=== PATIENT | female | born 2000 | race Caucasian/White ===

== ENCOUNTER 2021-09-28 12:54 | Emergency (ER) | payer OTHER, SELFPAY ==
[2021-09-28 12:55] VITALS: BP 116/73; PULSE 73; RESP 12; TEMP 36.6; O2SAT 97; BMI 29.7
--- NOTE | 2021-09-28 13:09 | EX.ED.DYSGE1 ---
HPI History of Present Illness Chief Complaint: Lower Extremity Injury Detail of Chief Complaint: Sciatica\left leg swelling Informant: patient Onset/Context/Timing Onset: Days Context: Gradual Onset Current Severity: Mild Maximum Severity: Moderate Narrative Narrative: Patient presents secondary to sciatica as well as left leg swelling. Patient delivered a stillborn baby on the of this month. She has very minimal if any vaginal bleeding at this time. She states she has had problems with her left sciatic nerve flaring up over the past several days. She was seen by her chiropractor who did an adjustment and told her left leg swelling should be improved within 24 hours. She feels that the swelling today is worse if anything. She has noted left leg swelling for the past 3 days. She is concerned for possible DVT. She presents on Thursday afternoon when I do not have venous ultrasound available. [facility] Medical History (Updated 09/28/21 @ 13:[address] Breanna Rubio MD) Sciatica Home Medications cyclobenzaprine 10 mg PO BID PRN #10 tab 09/28/21 [Rx Last Taken Unknown] hydrocodone-acetaminophen 1 tab PO Q6H PRN 3 Days #10 tab 09/28/21 [Rx Last Taken Unknown] Allergy/AdvReac Type Severity Reaction Status Date / Time No Known Allergies Allergy Verified 09/28/21 12:55 [facility] ED Constitutional Constitutional ED: Denies chills or fever(s) Eyes Eyes: Denies change in vision Cardiovascular Cardiovascular: Denies chest pain Respiratory/Chest Respiratory/Chest: Denies cough or dyspnea Gastrointestinal Gastrointestinal: Denies abdominal pain, diarrhea, nausea or vomiting Genitourinary Genitourinary ED: Denies dysuria Musculoskeletal Musculoskeletal: Reports arthralgias and back pain Integumentary Denies rash Neurologic Neurologic: Denies headache(s) or weakness Allergic/Immunologic Allergic/Immunologic ED: Denies urticaria EXAM Physical Exam Const Vital Signs: 09/28/21 12:55 Temperature 97.9 F Temperature Source Temporal Pulse Rate 73 Respiratory Rate 12 Blood Pressure 116/73 Blood Pressure Mean 87 Pulse Ox 97 Oxygen Delivery Method Room Air Positive well nourished and well developed General Appearance ED: well developed HEENT Reports moist mucous membranes Eyes PERRL and EOMs intact bilaterally Neck no lymphadenopathy and supple Chest Wall inspection of chest normal and palpation of chest normal Resp normal respiratory effort and clear to auscultation bilaterally Cardio regular rate and regular rhythm GI normal to inspection, nondistended, normoactive bowel sounds and non-tender Palpation: soft Back/Spine Back/Spine Narrative: No midline thoracic or lumbar tenderness. Tenderness in the left lower lumbar paraspinal muscles and over the left sciatic notch. Extremity Extremity Narrative: 2-3+ edema noted to the left lower extremity. Strong distal pulses. Full range of motion at all joints with no difficulty. Neuro oriented x3 Sensorium / Orientation: alert Psych mental status grossly normal Skin no rashes or lesions noted MDM MDM MDM Narrative Medical decision making narrative: Patient is currently on ibuprofen for her back pain. She will be given a prescription for Flexeril and [place] as well. I am unable to get an ultrasound of her leg at this time. She will be given a single dose of Lovenox and will return tomorrow for venous ultrasound of the leg. Patient voices understanding and agreement with the plan. Discharge Plan Triage Chief Complaint: Lower Extremity Injury ED Provider: Breanna Rubio Dx/Rx/DC Orders Clinical Impression: Sciatica, Edema, lower extremity Instructions: ED Peripheral Edema, Unilateral, ED Sciatica Prescriptions: New cyclobenzaprine 10 mg tablet 10 mg PO BID PRN (Reason: muscle spasm) Qty: 10 RF: 0 hydrocodone-acetaminophen 5-325 mg tablet 1 tab PO Q6H PRN (Reason: pain) 3 Days Qty: 10 RF: 0 Other Ambulatory Orders: Venous Duplex US, Unilateral (Routine) Facility: [facility] - Location: [facility] Ordered By: Dr. Breanna Rubio ON-CALL NEEDED: Notify [facility] - Doppler Study Ordered (Stat) Location: None Selected Ordered By: Dr. Breanna Rubio Primary Care Provider: [facility] ,Out of Referrals: Sil Morales,Out of [Primary Care Provider] - Disposition Disposition: Home, Self Care
[2021-09-28] MEDS: Enoxaparin 80 MG/0.8 ML Syringe 70 MG SC (13:24)
== END 2021-09-28 14:01 | disposition home or self-care (01) ==
LOC: ED 13:41
PROVIDERS: Emergency Provider Emergency Medicine; Visit Provider Emergency Medicine
DX: M54.42 Lumbago with sciatica, left side (principal); R60.0 Localized edema
CPT/HCPCS: 96372; 99282

== ENCOUNTER 2021-09-29 12:47 | Emergency (ER) | payer OTHER, SELFPAY ==
[2021-09-29 12:49] VITALS: BP 110/67; PULSE 83; RESP 17; TEMP 36.8; O2SAT 98; BMI 29.7
--- NOTE | 2021-09-29 13:07 | EX.ED.DYSGE1 ---
HPI History of Present Illness Chief Complaint: Lower Extremity Injury Detail of Chief Complaint: DVT Informant: patient Narrative Narrative: Patient seen in the emergency room yesterday secondary to left leg pain with sciatica but also had edema. She delivered a stillborn baby approximately 10 days prior. Patient presented after hours for ultrasound and had outpatient ultrasound today. This does reveal evidence of DVT with involvement of the external iliac vein, common femoral vein, profunda vein, femoral vein, left popliteal vein, left TP trunk, left peroneal vein. Patient states she did well after receiving the Lovenox injection yesterday. She denies chest pain or shortness of breath. [facility] Medical History Sciatica Home Medications cyclobenzaprine 10 mg PO BID PRN #10 tab 09/28/21 [Rx Last Taken Unknown] hydrocodone-acetaminophen 1 tab PO Q6H PRN 3 Days #10 tab 09/28/21 [Rx Last Taken Unknown] apixaban [Eliquis DVT-PE Treat 30D Start] 5 mg PO BID #74 tab 09/29/21 [Rx Last Taken Unknown] Allergy/AdvReac Type Severity Reaction Status Date / Time No Known Allergies Allergy Verified 09/29/21 12:49 Social History Smoking Status: Former smoker ROS ROS ED Constitutional Constitutional ED: Denies chills or fever(s) Eyes Eyes: Denies change in vision ENT ENT ED: Denies sore throat Cardiovascular Cardiovascular: Denies chest pain Respiratory/Chest Respiratory/Chest: Denies cough or dyspnea Gastrointestinal Gastrointestinal: Denies abdominal pain, nausea or vomiting Genitourinary Genitourinary ED: Denies dysuria Musculoskeletal Musculoskeletal: Reports arthralgias and back pain Integumentary Denies rash Neurologic Neurologic: Denies headache(s), paresthesias or weakness Allergic/Immunologic Allergic/Immunologic ED: Denies urticaria EXAM Physical Exam Const Vital Signs: 09/29/21 12:49 Temperature 98.3 F Temperature Source Temporal Pulse Rate 83 Respiratory Rate 17 Blood Pressure 110/67 Blood Pressure Mean 81 Pulse Ox 98 Oxygen Delivery Method Room Air Positive well nourished and well developed General Appearance ED: well developed HEENT Reports moist mucous membranes Eyes PERRL and EOMs intact bilaterally Neck supple Chest Wall inspection of chest normal and palpation of chest normal Resp normal respiratory effort and clear to auscultation bilaterally Cardio regular rate and regular rhythm GI normal to inspection, nondistended, normoactive bowel sounds and non-tender Palpation: soft Extremity Extremity Narrative: 2+ edema noted to the left lower extremity. Strong distal pulses. Neuro oriented x3 Sensorium / Orientation: alert Motor Exam: strength 5/5 throughout Psych mental status grossly normal Skin no rashes or lesions noted [facility] Treatment and Re-Evaluation Narrative: I do have a coupon for Eliquis 30-day starter pack. She will be given this and first dose of Eliquis will be provided in the emergency room. She does not have a primary care physician. I will speak with Dr. Andersen, on-call for [facility] no doc. Patient will follow-up in her office. Discharge Plan Triage Chief Complaint: Lower Extremity Injury ED Provider: Breanna Rubio Dx/Rx/DC Orders Clinical Impression: DVT (deep venous thrombosis) Instructions: ED Deep Vein Thrombosis (DVT) Prescriptions: New Eliquis DVT-PE Treat 30D Start 5 mg (74 tabs) tablets,dose pack 5 mg PO BID Qty: 74 RF: 0 No Action cyclobenzaprine 10 mg tablet 10 mg PO BID PRN (Reason: muscle spasm) Qty: 10 RF: 0 hydrocodone-acetaminophen 5-325 mg tablet 1 tab PO Q6H PRN (Reason: pain) 3 Days Qty: 10 RF: 0 Primary Care Provider: Care Physician,No Primary Referrals: Jose Antonio Andersen DO [NON-STAFF] - 1-2 Weeks Care Physician,No Primary [Primary Care Provider] - Disposition Disposition: Home, Self Care
[2021-09-29] MEDS: APIXABAN 5 MG TABLET 10 MG PO (13:17)
== END 2021-09-29 13:44 | disposition home or self-care (01) ==
LOC: ED 13:12
PROVIDERS: Emergency Provider Emergency Medicine; Visit Provider Emergency Medicine
DX: I82.422 Acute embolism and thrombosis of left iliac vein (principal); I82.412 Acute embolism and thrombosis of left femoral vein; I82.432 Acute embolism and thrombosis of left popliteal vein; I82.452 Acute embolism and thrombosis of left peroneal vein; Z87.891 Personal history of nicotine dependence
CPT/HCPCS: 99283

== ENCOUNTER → 2021-09-29 | Outpatient (CLI) | payer OTHER, SELFPAY ==
--- NOTE | 2021-09-29 12:20 | VDLE_ITS ---
Reason For Study: Swelling RIGHT LEFT CFV is compressible, spontaneous, phasic, Lt EIV, Lt CFV, Lt ProfudaV, Lt FV, Lt PopV, competent and demonstrates normal Lt T/P Trunk, Lt PTV, Lt PeroV are dilated augmentation. and non compresible consistent with acute Procedure DVT This is a venous duplex using B-mode, color flow and spectral Doppler. DVT is seen in Lt EIV. Exam performed in department. GSV is normal. Patient taken to ED. A preliminary report was called and/or faxed to ED. VL/Venous Duplex US, Unilateral Interpretation Summary Acute deep vein thrombosis is noted in the left external iliac vein. Acute deep vein thrombosis is noted in the left profunda femoris vein. Acute deep vein thrombosis is noted in the left common femoral vein. Acute deep vein thrombosis is noted in the left femoral vein. Acu te deep vein thrombosis is noted in the left popliteal vein. Acute deep vein thrombosis is n oted in the left tibio-peroneal trunk. Acute deep vein thrombosis is noted in the left posterior tibial vein. Acute deep vein thrombosis is noted in the left peroneal vein. The left great [place] us vein appears patent and compressible segmentally. Ordering Physician: Breanna Rubio Referring Physician: Breanna Rubio Performed By: Marisela Felix, ZOË, RVT
== END | disposition home or self-care (01) ==
PROVIDERS: Referring Provider Emergency Medicine; Visit Provider Emergency Medicine
DX: M79.89 Other specified soft tissue disorders (principal)
CPT/HCPCS: 93971

== ENCOUNTER 2023-10-30 18:45 | Emergency (ER) | payer OTHER, SELFPAY ==
[2023-10-30 18:45] VITALS: BP 113/73; PULSE 68; RESP 16; TEMP 36.6; O2SAT 99; BMI 30.4
--- NOTE | 2023-10-30 18:59 | CT_ITS ---
INDICATION: RIght sided headache EXAMINATION: CT BRAIN - CT Head or Brain W/O Contrast Injection TECHNIQUE: Multiple axial images were obtained of the head without intravenous contrast. A radiation dose optimization technique was used for this scan. IV Contrast dosage and agent: None. COMPARISON: None FINDINGS: BRAIN PARENCHYMA: No intra- or extra-axial hemorrhage. No evidence of acute infarct. No intracranial mass or mass effect. Unremarkable white matter for age. There is preservation of the courtney/white matter interface. Posterior fossa structures are unremarkable. CSF SPACES: Cerebral volume appropriate for age. No hydrocephalus. Basal cisterns are patent. CALVARIUM, SKULL BASE, PARANASAL SINUSES AND MASTOID AIR CELLS: No acute osseous finding. Paransasal sinuses are clear. Mastoid air cells are clear. ORBITS: Both globes, extraocular muscles, optic nerves and retrobulbar fat appear unremarkable. ASPECTS Score for Acute Strokes: 10 CT/Brain/Head without Contrast IMPRESSION: Negative Brain CT without contrast. Electronically Signed: Paulo Lambert MD at 19:50 EDT ,
--- NOTE | 2023-10-30 19:01 | EDS_ITS ---
HPI History of Present Illness Chief Complaint: Headache Narrative Narrative: 23-year-old female who denies significant past medical history presents with her boyfriend because of a right-sided headache and nausea that she has had since 4 PM today. 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 She states that she is nauseated, and when she tries to vomit or dry heave, her head will hurt even more. She describes almost near syncope as well. She is describing somewhat of an aura where she is seeing blotches. Additionally, she states she has had headaches almost every day for the last 3 months. Usually they will go away with Tylenol or ibuprofen. Last menstrual period was approximately 1 month ago. She denies any numbness or tingling of her arms or legs but has phonophobia but no photophobia. She also states that without her glasses, she gets occasional double vision. [facility] Medical History Sciatica Home Medications ?Medication ?Instructions ?Recorded ?Last Taken ?Type cyclobenzaprine 10 mg tablet 10 mg PO BID PRN muscle spasm #10 09/28/21 Unknown Rx tabs hydrocodone-acetaminophen 5-325mg 1 tab PO Q6H PRN pain 3 days #10 09/28/21 Unknown Rx 5mg-325mg tabs apixaban 5 mg (74 tabs) tablets in 5 mg PO BID #74 tabs 09/29/21 Unknown Rx a dose pack (Eliquis DVT-PE Treat 30D Start) Allergy/AdvReac Type Severity Reaction Status Date / Time No Known Allergies Allergy Verified 10/30/23 18:46 Social History Smoking Status: Former smoker ROS ROS ED ROS Narrative Constitutional: No fever, no chills. HEENT: No sore throat. No neck pain. No loss of vision. Intermittent double vision, and seeing blotches. No rhinorrhea. Cardiovascular: No chest pain. No palpitations. No pedal edema. Respiratory: No cough, no shortness of breath. Abdominal: No abdominal pain. Positive nausea. No vomiting. Occasional dry heaving. Genitourinary: No dysuria. No hematuria. Musculoskeletal: No myalgias. No arthralgias. Neurologic: Positive daily headaches. No dizziness. Positive lightheadedness. Skin: No rash. No change in color. Psychiatric: No depression. No anxiety. EXAM Physical Exam Narrative Exam Narrative: Afebrile. Vital signs noted. HEENT: Normocephalic. Atraumatic. PERRL, EOMI. Neck soft and supple. No point tenderness or step off. Cardiovascular: Regular rate and rhythm. No murmurs, rubs, or gallops appreciated. Respiratory: No tachypnea. Lungs clear to auscultation bilaterally. Gastrointestinal: Abdomen soft, nontender, with normoactive bowel sounds. No rebound or guarding. Neurological: Awake. Alert. Nonfocal, nonlateralizing. NIH stroke scale is 0. DTRs equal and symmetric, patellar Skin: No rash. Normal color. No pallor. Musculoskeletal: No pedal edema. Full range of motion extremities. Const Vital Signs: 10/30/23 18:45 Temperature 97.8 F Temperature Source Temporal Pulse Rate 68 Respiratory Rate 16 Blood Pressure 113/73 Blood Pressure Mean 86 Pulse Ox 99 MDM MDM MDM Narrative Medical decision making narrative: Concern is for migrainous type headache. I reviewed her prior records and she has not had a workup for this, however. She has almost daily headaches. I do feel that she would require baseline laboratory work, and CT imaging of the brain. She will be given a migraine cocktail/medications including Compazine and Benadryl along with IV fluids for her near syncope. I think she may be having more of an atypical migraine today. I reviewed the CT report of the CT of the brain which shows no evidence of acute process, no hemorrhage or mass. I reviewed her laboratory work and she has normal white count of 9.9, hemoglobin normal at 12.1, platelet count normal at 263. Electrolyte panel is significant for chloride of 111 which I think is nonspecific, no dehydration. Serum is negative. After Compazine and Benadryl, repeat examination at approximately 2014 shows her to be resting comfortably and her headache is mildly improved. At this point in time, I feel she can be discharged to follow-up with her primary care provider and/or neurology. She was referred to both. Return instructions to the emergency department were reviewed. Disposition is discharged home in stable condition. History & Record Review Discussion w/independent historian: Patient Lab Data Attestation: I reviewed the patient's lab results. Labs: Laboratory Results - last 24 hr 10/30/23 10/30/23 19:10 19:53 WBC 9.9 RBC 4.47 Hgb 12.1 Hct 37.4 MCV 83.7 MCH 27.1 MCHC 32.4 RDW Std Deviation 38.8 RDW Coeff of Nicholas 13.0 Plt Count 263 MPV 10.9 Immature Gran % (Auto) 0.200 Neut % (Auto) 53.1 Lymph % (Auto) 37.0 [place] % (Auto) 7.7 Eos % (Auto) 1.5 Baso % (Auto) 0.5 Absolute Neuts (auto) 5.2 Absolute Lymphs (auto) 3.64 Nucleated RBC % 0 Sodium 140 Potassium 3.5 Chloride 111 H Carbon Dioxide 25.0 Anion Gap 4 L BUN 13 Creatinine 0.76 Estim Creat Clear Calc 99.20 Est GFR (MDRD) Af Amer 119 Est GFR (MDRD) Non-Af 98 BUN/Creatinine Ratio 17.1 Glucose 89 Calcium 9.3 Serum , Qual NEGATIVE Radiography Diagnostic Testing: Clinical Impression(s) from Imaging Studies Brain CT 10/30/23 18:59 IMPRESSION: Negative Brain CT without contrast. Electronically Signed: Paulo Lambert MD at 19:50 EDT Reading Location ID and State: [facility] / [place] Tel , Service support , Discharge Plan Triage Chief Complaint: Headache ED Provider: Aston Chávez Dx/Rx/DC Orders Clinical Impression: Migraine headache, Lightheadedness Instructions: ED Headache Unspecified, ED, Migraine (Classical), ED Near- Fainting, Uncertain Cause Prescriptions: No Action cyclobenzaprine 10 mg tablet 10 mg PO BID PRN (Reason: muscle spasm) Qty: 10 0RF hydrocodone-acetaminophen 5-325 mg tablet 1 tab PO Q6H PRN (Reason: pain) 3 Days Qty: 10 0RF Eliquis DVT-PE Treat 30D Start 5 mg (74 tabs) tablets,dose pack 5 mg PO BID Qty: 74 0RF Primary Care Provider: Care Physician,No Primary Referrals: Jose Miguel Gallardo MD [Non-Staff] - Edson Niño MD [Med Staff - Active Staff] - As soon as possible Billy Nicholas MD [Non-Staff -Ordering Privileges] - As Needed Care Physician,No Primary [Primary Care Provider] - Print Language: Mexican Disposition Disposition: Home, Self Care
[2023-10-30] MEDS: 0.9% Normal Saline (1000mL) 1,000 ML 1000 ML IV (19:13)
[2023-10-30] MEDS: DiphenhydrAMINE 50 MG/ML Syringe 25 MG IV (19:13)
[2023-10-30] MEDS: proCHLORPERazine 10 MG/2 ML Vial IV (19:14)
[2023-10-30 19:18] LABS: Absolute Lymphocyte Count 3.64 X10^3/uL (0.83-4.51); Absolute Neutrophil Count 5.2 X10^3/uL (2.0-7.7); Basophil# 0.05 X10^3/uL; Basophil% 0.5 % (0-1); Eosinophil# 0.15 X10^3/uL; Eosinophils% 1.5 % (0-5); Hematocrit 37.4 % (37-47); Hemoglobin 12.1 g/dL (12.0-15.0); Lymphocyte # 3.64 X10^3/ul (0.83-4.51); Mean Corp Hgb Conc 32.4 g/dL (32-36); Mean Corpuscular Hgb 27.1 pg (27.0-32.0); Mean Corpuscular Volume 83.7 fL (81-99); Mean Platelet Vol. 10.9 fl (6.2-12.0); Monocyte# 0.76 X10^3/uL; Monocyte% 7.7 % (0-10); NRBC Flagged by Analyzer 0 % (0-5); Neutrophil # 5.23 X10^3/uL (2.7-7.7); Neutrophil % 53.1 % (47-70); Platelet Count 263 K/mm3 (150-450); RBC Distribution Width SD 38.8 fl (35.1-43.9); Red Blood Count 4.47 M/mm3 (4.2-5.4); White Blood Count 9.9 K/mm3 (4.4-11.0)
[2023-10-30 19:37] LABS: Anion Gap 4 (5-15); BUN 13 mg/dL (7-18); BUN/Creat Ratio 17.1 RATIO (10-20); Calcium,Total 9.3 mg/dL (8.5-10.1); Chloride 111 mmol/L (98-107); Creatinine, Serum 0.76 mg/dL (0.55-1.02); EST Glomerular Filtration Rate 98 mL/min (>60); Est Glom Filt Rate - Afr Amer 119 mL/min (>60); Glucose 89 mg/dL (74-106); Potassium 3.5 mmol/L (3.5-5.1); Sodium Level 140 mmol/L (136-145)
[2023-10-30 20:12] LABS: Internal QC Validated? YES +Cl - CLEAR BKGD; Pregnancy, Serum, hCG Quali. NEGATIVE Negative
== END 2023-10-30 20:37 | disposition home or self-care (01) ==
PROVIDERS: Emergency Provider Emergency Medicine; Visit Provider Emergency Medicine
DX: G43.909 Migraine, unspecified, not intractable, without status migrainosus (principal); R42 Dizziness and giddiness; Z87.891 Personal history of nicotine dependence
CPT/HCPCS: 70450; 80048; 84703; 85025; 96361; 96374; 96375; 99283; A4216